=== PATIENT | female | born 1990 | race African-American/Black ===

== ENCOUNTER 2017-04-05 08:59 | Emergency (ER) | payer MEDICAID ==
[~2017-04-05] VITALS: Ht 170.2 cm; Wt 65.3 kg
[2017-04-05 09:14] VITALS: Ht 170.2 cm; Wt 65.3 kg
[2017-04-05 11:02] VITALS: BP 115/78
== END 2017-04-05 11:02 | disposition home or self-care (01) ==
LOC: ED 08:59
DX: J02.0 Streptococcal pharyngitis (principal); H92.02 Otalgia, left ear
CPT/HCPCS: J1100

== ENCOUNTER 2017-04-26 05:58 | Emergency (ER) | payer OTHER ==
[~2017-04-26] VITALS: Ht 170.2 cm; Wt 65.8 kg
[2017-04-26 06:08] VITALS: Ht 170.2 cm; Wt 65.8 kg
[2017-04-26 06:48] VITALS: BP 113/68
== END 2017-04-26 06:48 | disposition home or self-care (01) ==
LOC: ED 05:58
DX: J02.9 Acute pharyngitis, unspecified (principal); R19.7 Diarrhea, unspecified